=== PATIENT | female | born 1995 | race African-American/Black ===

== ENCOUNTER 2016-10-09 14:16 | Emergency (ER) | payer OTHER ==
[2016-10-09 14:23] VITALS: BP 131/73; PULSE 76; TEMP 98.4; BMI 18.8
--- NOTE | 2016-10-09 14:49 | PDOC ---
History of Present Illness - General Chief Complaint: Rash Stated Complaint: RASH Time Seen by Provider: 10/09/16 14:25 History Source: Patient - History of Present Illness Initial Comments: 10/09/16 15:23 Chief Complaint: Rash Pt. is a 21 y/o female with no significant PMH who presents to the ED complaining of a rash. Pt. states that she noticed the rash started approximately 3 days ago on her abdomen. Since then she noticed it spreading to her trunk, arms and legs. Pt. states that the rash is itchy. Denies fevers, chills, recent illness, n/v/d. Pt. states she had the chicken pox vaccine. Past History - Travel Traveled outside of the country in the last 30 days: No Close contact w/someone who was outside of country & ill: No - Past Medical History Allergies/Adverse Reactions: Allergies Allergy/AdvReac Type Severity Reaction Status Date / Time No Known Allergies Allergy Verified 10/09/16 14:22 Home Medications: Ambulatory Orders Clobetasol Prop 0.05% Top Cr [Temovate (Nf)] 120 gm NR BID #1 tube 10/09/16 Desonide 60 gm TP BID #1 tube 10/09/16 Other medical history: NONE - Psycho/Social/Smoking Cessation Hx Suicidal Ideation: No Smoking History: Current some day smoker Number of Cigarettes Smoked Daily: 2 Information on smoking cessation initiated: No Hx Alcohol Use: Yes (SOCIAL) Drug/Substance Use Hx: No Substance Use Type: None Review of Systems - Review of Systems Able to Perform ROS?: Yes Is the patient limited [place] proficient: No Constitutional: No: Chills, Fever, Weakness HEENTM: No: Ear Pain, Ear Discharge, Nose Congestion, Throat Pain Respiratory: No: Cough ABD/GI: No: Diarrhea, Nausea, Vomiting Integumentary: Yes: Pruritus, Rash *Physical Exam - Vital Signs Last Vital Signs Temp Pulse Resp BP Pulse Ox 98.4 F 76 20 131/73 100 10/09/16 14:20 10/09/16 14:20 10/09/16 14:20 10/09/16 14:20 10/09/16 14:20 - Physical Exam General Appearance: Yes: Nourished, Appropriately Dressed, Other (Sitting on exam bed, AAOx3). No: Apparent Distress HEENT: positive: EOMI, FRANCISCO, Normal ENT Inspection, TMs Normal, Pharynx Normal Integumentary: positive: Dry, Warm, Rash ([place] patch on the L flank/mid back approximately 3 cm oblong shape. Many circular patches on abdomen, arms and legs in varying sizes, all smaller than herald patch. No obvious erythema or swelling.) Neurologic: positive: cfd engineer II-XII NML intact, Fully Oriented, Alert, Normal Mood/ Affect, Normal Response, Motor Strength 5/5 Medical Decision Making - Medical Decision Making 10/09/16 15:39 Pt. is a 21 y/o female who presents with a rash over her trunk, arms and legs for three days. Pt. appears to have a herald patch along her L flank as well as flat elevated patches ranging in sizes, most consistent with piteryasis rosea. Will prescribe Clobetasol and desonide cream for the rash. Pt. may also use antihistamines. Pt. is to follow up with her PCP. Explained to the pt that this is a viral rash and it will generally clear on its own in 4-6 weeks. Pt. understands all discharge instructions and all questions were answered at this time. *DC/Admit/Observation/Transfer Diagnosis at time of Disposition: Pityriasis rosea - Discharge Dispostion Disposition: HOME Condition at time of disposition: Stable Admit: No - Prescriptions Prescriptions: Desonide 60 gm TP BID #1 tube Clobetasol Prop 0.05% Top Cr [Temovate (Nf)] 120 gm NR BID #1 tube - Patient Instructions Printed Discharge Instructions: DI for Pityriasis Rosea Additional Instructions: You have a rash called Pityriasis Rosea. This rash will go away on its own. You may take antihistamines to help with the itching. You were prescribed cortisone. You were written Clobetasol for the rash on your abdomen, back, legs and arms. You were written desonide cream for your under arms and groin area. Follow up with your primary care doctor in two weeks. Return to the ED if you develop fevers, chills, worsening of your rash or any other changes in your symptoms.
== END 2016-10-09 15:13 | disposition home or self-care (01) ==
LOC: JERFT 14:16
DX: L42 Pityriasis rosea (principal); F17.210 Nicotine dependence, cigarettes, uncomplicated
CPT/HCPCS: 99281-25